=== PATIENT | male | born 1950 | race Caucasian/White ===

== ENCOUNTER 2021-09-13 17:30 | Emergency (ER) | payer MEDICARE, OTHER | END 2021-09-13 19:50 | disposition home or self-care (01) | LOC: JP.ED 17:30 | DX: S83.92XA Sprain of unspecified site of left knee, initial encounter (principal); M25.462 Effusion, left knee; X50.0XXA Overexertion from strenuous movement or load, initial encounter | CPT/HCPCS: 99282; 99283 ==

== ENCOUNTER 2021-12-26 17:04 | Emergency (ER) | payer MEDICARE | END 2021-12-26 18:43 | disposition left against medical advice (07) | LOC: JP.ED 17:04 | DX: Z53.21 Procedure and treatment not carried out due to patient leaving prior to being seen by health care provider (principal) ==